=== PATIENT | female | born 1970 | race Caucasian/White ===

== ENCOUNTER → 2021-05-31 | Outpatient (CLI) | payer BC ==
--- NOTE | 2021-05-31 14:46 | RAD ---
MR LUMBAR SPINE WO [id number] History: Reason: RIGHT LUMBAR RADICULITIS / Spl. Instructions: / History: Technique: Multiplanar, multi sequential MR imaging was performed of the lumbar spine. Comparison: None Findings: Normal vertebral body height and alignment. No fracture. Conus terminates at the normal location. No evidence of nerve root clumping. L1-L2: No canal or neuroforaminal narrowing. L2-L3: Minimal disc bulge. Mild facet arthropathy. No canal or neuroforaminal narrowing. L3-L4: Small disc bulge. Mild to moderate facet arthropathy. No canal narrowing. Right foraminal dis c protrusion. Mild right neuroforaminal narrowing. L4-L5: Broad-based disc bulge with central disc protrusion. Moderate facet arthropathy. No canal sachin rowing. Minimal subarticular recess narrowing. Moderate right and mild left neuroforaminal narrowing. L5-S1: Disc bulge. Mild facet arthropathy. No canal narrowing. No neuroforaminal narrowing. Impression: 1. Mild lumbar spondylosis most prominent L3-L4 and L4-5. 2. Neuroforaminal narrowing most prominent right L4-5. Electronically signed by: Hero Richardson DO (05/31/2021 2:44 PM) [id number]
== END ==
LOC: MRI 13:25
PROVIDERS: ATTEND Anesthesiology
DX: M47.27 Other spondylosis with radiculopathy, lumbosacral region (principal); M51.17 Intervertebral disc disorders with radiculopathy, lumbosacral region; M48.061 Spinal stenosis, lumbar region without neurogenic claudication
CPT/HCPCS: 72148